=== PATIENT | female | born 1985 | race Caucasian/White ===

== ENCOUNTER 2023-11-07 10:00 | Emergency (ER) | payer OTHER, SELFPAY ==
[2023-11-07 10:02] VITALS: BP 115/87
[2023-11-07] MEDS: ADACEL 0.5 ML IM (11:26)
--- NOTE | 2023-11-07 12:06 | ED.GENMED ---
History of Present Illness
General
Chief Complaint: Musculo-Skeletal Complaint
Source: patient and spouse
Exam Limitations: none
Time Seen by Provider: 11/07/23 10:35
Nursing documentation reviewed up to this point in time: agreed with
Travel History
Have you had any contact with someone who has COVID-19?: No
Do you have any symptoms of coronavirus? Fever > 100 degrees, chills, cough, shortness of breath, sore throat, loss of taste or smell, muscle aches, or headache?: No
History of Present Illness
History of Present Illness:
38-year-old female presenting to the emergency department today with concerns of left-sided foot discomfort after a ceramic figurine fell on her foot last night. Sustained a small cut to the area The area clean and put a bandage on top. Denies
additional concerns no numbness or weakness.
Review of Systems
Review of Systems
Allergies reviewed?: Yes
All Other Systems: ROS reviewed and negative except as documented in HPI and ROS
Phy Exam
Physical Exam
Physical Exam:
GENERAL: Alert , in no apparent distress
EYE: pupils equal and reactive
NECK: Supple, no significant adenopathy.
ENT: o/p clr, mmm.
CARDIAC: Regular rate and rhythm .
LUNGS: Clear breath sounds bilaterally, no acute respiratory distress, no wheezes/rales/rhonchi
ABDOMEN: Soft, without focal tenderness, no r/g, no cvat
NEUROLOGICAL: Alert and oriented, no focal neuro deficits
SKIN: Warm and dry, skin intact.
MUSCULOSKELETAL: Small laceration to the base of the left great toe no gaping no redness or warmth no tenderness good range of motion good sensation distally no edema, well perfused.
PSYCH: Normal and appropriate interaction.
Course
Orders/Labs/Results
Orders:
Orders
11/07/23 10:04
Foot, Left 3 View [CR Foot - Left Min 3 Views] Urgent
Comment:
Reason For Exam: pain, bruising
11/07/23 10:56
Tetanus/Diphth/Acelpertussis [Adacel] 0.5 ml IM .ONCE ONE
Vital Signs
Initial and Last Documented VS:
Initial Vital Signs
Temp Pulse Resp BP Pulse Ox
98.1 F 72 18 115/87 100
11/07/23 10:02 11/07/23 10:02 11/07/23 10:02 11/07/23 10:02 11/07/23 10:02
Last Documented Vital Signs
Temp Pulse Resp BP Pulse Ox
98.1 F 72 18 115/87 100
11/07/23 10:02 11/07/23 10:02 11/07/23 10:02 11/07/23 10:02 11/07/23 10:02
MDM/Problems Addressed
MDM/Problems Addressed:
38-year-old female presenting to the emergency department today with concerns of left-sided great toe discomfort after a ceramic for green hit her in the foot last night there is a small cut to the area but low risk for infection very clean in
appearance no risk factors for infection normal vital signs no redness or warmth. X-ray without signs of fracture. Patient otherwise stable for discharge return precautions given. Given updated tetanus shot as well.
*Critical Care Note
Total Time (30-74mins, 75-104mins- exclusive of procedures): Not Applicable
ED Attending Note
-
Portions of this chart may have been created with voice recognition software.� Occasional wrong word or��sound alike� substitutions may have occurred due to the inherent limitations of voice recognition software.
Discharge Plan
Departure
Patient Disposition: Home (Routine Discharge)
Date of Disposition: 11/07/23
Time of Disposition: 12:10
Patient with high blood pressure during this ER visit?: No
Condition: Good
Covid-19: Not Applicable
Discharge Problem:
Laceration of toe
Instructions: Toe Injury
Prescriptions:
No Action
lamotrigine [Lamictal] 200 mg Tablet
200 mg PO DAILY
ascorbic acid (vitamin C) [Vitamin C] 250 mg Tablet
250 mg PO DAILY
ibuprofen [Motrin IB] 200 mg Tablet
600 mg PO Q6H PRN (Reason: mild pain)
tramadol 50 mg Tablet
50 mg PO Q6HPRN PRN (Reason: severe pain) Qty: 14 0RF
acetaminophen [Pain Relief (acetaminophen)] 325 mg tablet
650 mg PO Q6H PRN (Reason: fever or pain) Qty: 20 0RF
ondansetron HCl 4 mg Tablet
4 mg PO Q8HPRN PRN (Reason: nausea/vomiting) Qty: 20 0RF
Referrals:
Law Suggs, DO [Family Provider] -
Stand Alone Forms: Return to Work
Interventions
Interventions:
*Risk Screen - Suicide Last Done: 11/07/23 11:24
*General Assessment Last Done: 11/07/23 11:24
*Neglect/Abuse Screening Last Done: 11/07/23 11:34
ED- Fall Risk Assessment Last Done: 11/07/23 11:34
*ED COVID-19 Vaccine History Last Done: 11/07/23 11:24
ED-Musculoskeletal Assessment Last Done: 11/07/23 11:34
Discharge Date and Time
Print Language: [place]
== END 2023-11-07 13:23 | disposition home or self-care (01) ==
LOC: EMR 10:00
PROVIDERS: EMERGENCY PHYSICIAN Emergency Medicine; FAMILY PHYSICIAN Family Medicine
DX: S91.112A Laceration without foreign body of left great toe without damage to nail, initial encounter (principal); X58.XXXA Exposure to other specified factors, initial encounter; Z23 Encounter for immunization
CPT/HCPCS: 99283; 90471; 73630; 90715